=== PATIENT | male | born 1970 | race Caucasian/White ===

== ENCOUNTER → 2017-06-18 13:27 | Outpatient (CLI) | payer MEDICAID | END | disposition home or self-care (01) | LOC: D.MRI 13:27 | DX: G40.209 Localization-related (focal) (partial) symptomatic epilepsy and epileptic syndromes with complex partial seizures, not intractable, without status epilepticus (principal) ==

== ENCOUNTER 2018-10-22 13:37 | Emergency (ER) | payer MEDICAID ==
[~2018-10-22] VITALS: Ht 170.2 cm; Wt 75.0 kg
[2018-10-22 13:57] VITALS: BP 105/59; Ht 170.2 cm; Wt 75.0 kg
[2018-10-22] MEDS ORDERED: NEXIUM40 MG PO (15:11)
[2018-10-22] MEDS ORDERED: ZOFRAN4 MG PO (15:11)
== END 2018-10-22 15:30 | disposition home or self-care (01) ==
LOC: D.ER 13:37
DX: K21.9 Gastro-esophageal reflux disease without esophagitis (principal); R11.0 Nausea